=== PATIENT | male | born 1950 | race Caucasian/White ===

== ENCOUNTER 2020-06-06 14:23 | Outpatient (REF) | payer SELFPAY ==
[2020-06-09 12:55] LABS: SARS-CoV-2 RNA Not Detected (NotDetected); SARS-CoV-2 RNA Source Nasal/Nares
== END 2020-06-06 14:43 ==
LOC: NCHCN 14:23
PROVIDERS: PCP Nurse Practitioner Family; Visit Provider Nurse Practitioner Family
DX: Z20.828 Contact with and (suspected) exposure to other viral communicable diseases (principal)
CPT/HCPCS: U0003

== ENCOUNTER 2020-07-06 14:32 | Outpatient (REF) | payer OTHER, SELFPAY ==
[2020-07-09 09:51] LABS: COVID-19 RT-PCR Result Positive (Negative)
== END 2020-07-06 14:52 ==
LOC: NCHCN 14:32
PROVIDERS: PCP Nurse Practitioner Family; Visit Provider Nurse Practitioner Family
DX: J06.9 Acute upper respiratory infection, unspecified (principal)
CPT/HCPCS: U0003

== ENCOUNTER 2021-12-11 20:36 | Outpatient (REF) | payer OTHER, SELFPAY ==
[2021-12-11 21:50] LABS: Anion Gap 8.7 mmol/L (3-11); BUN 24 mg/dL (7-18); CO2 28.3 mmol/L (21.0-32.0); CREATININE 1.3 mg/dL (0.70-1.30); Calcium 8.1 mg/dL (8.5-10.1); Chloride 104 mmol/L (98-107); Estimated GFR 54.11 (mL/min/1.73m2); Glucose 97 mg/dL (74-106); Potassium 3.9 mmol/L (3.5-5.1); Sodium 141 mmol/L (136-145)
== END 2021-12-11 20:37 | disposition home or self-care (01) ==
LOC: NCHCN 20:36
PROVIDERS: PCP Nurse Practitioner Family; Visit Provider Nurse Practitioner Family
DX: U07.1 COVID-19 (principal)
CPT/HCPCS: 80048

== ENCOUNTER 2022-12-27 12:41 | Outpatient (CLI) | payer OTHER, SELFPAY ==
--- NOTE | 2022-12-27 06:00 | DI.RAD_ITS ---
Exam(s) XR PAIN CLINIC LUMBAR SP 2V EXAM: XR PAIN CLINIC LUMBAR SP 2V CLINICAL HISTORY: Dx: Lumbar Radiculopathy TECHNIQUE: 2D and realtime digital imaging was performed. Radiologist not present. CONTRAST MATERIAL: None. COMPARISON: No exams were available for comparison FINDINGS: Fluoroscopy was provided for pain management therapy. Please refer to procedure report or details. Radiation Exposure Index: Ka,r=7.7 mGy IMPRESSION: As above. RADIATION DOSE DELIVERED:
[2022-12-27 12:54] VITALS: BP 133/74; PULSE 59; RESP 16; TEMP 37; O2SAT 96
[2022-12-27 13:31] VITALS: BP 163/71; PULSE 65; RESP 21; O2SAT 99
--- NOTE | 2022-12-27 13:40 | PDOC.PAIN ---
Date of service: 12/27/22 Time of Service: 13:40 Pain Managment Procedure Note Procedure Note Procedure Note: Lumbar Epidural Steroid Injection Procedure Note COMMENTS: He was sent for this directly from his surgeon. I did review his MRI and his symptoms (low back pain radiating down the right leg (lateral thigh and calf). He has radiculopathy which correlates with his MRI findings. Dx: Lumbosacral radiculopathy Pre-procedure pain VAS was 6/10. Michael Horton has been referred to the [facility] for lumbar epidural steroid injection. The patient was greeted by the nurse who verified patients name and . Patient was then taken to the fluoroscopy suite. The patient was interviewed and the medial record reviewed. There were no medical, pharmacologic, radiographic, or other structural contraindications to attempting fluoroscopically guided lumbar epidural steroid injection. Risks and expected side effects as well as potential benefits of the procedure were reviewed and voiced concerns expressed. The patient consent form was signed and witnessed. Standard patient time-out procedure was performed. The patient was placed in the prone position on the fluoroscopy table and automated blood pressure cuff and pulse oximeter applied. The skin entry point for entering/approaching the epidural space at L5-S1 and marked. Following thorough chlorhexadine preparation of the skin and draping and 1% lidocaine infiltration of the skin entry point and subcutaneous tissues, a 18 gauge Touhy needle was placed under fluoroscopic guidance and with loss of resistance technique into the epidural space. Needle tip placement and depth were aided and confirmed by fluoroscopy. There was no paresthesia or return of blood or CSF through the needle. 1 cc's of Omnipaque 240 was injected with clear epidural spread confirmed with fluoroscopy. 80mg depomedrol was injected. I then injected 2 cc of 1% Lidocaine. There was not any unusual discomfort expressed by Michael Horton. Patient's vital signs were stable throughout the procedure and were as recorded in nursing records. Follow up plans and appointments were discussed with patient. Post procedure instruction was given as documented in nursing records and having met discharge criteria and was discharged from the [facility]. COMMENTS: If this procedure is helpful, it can be completed up to 4 times per 12 months. Post-procedure pain VAS was 2/10. Darnell Thurman DO, MPH [facility]-Pain Management [facility]
[2022-12-27] MEDS: Omnipaque 240 MG/ML 50 ML BTL IJ (13:46)
[2022-12-27] MEDS: Normal Saline 20 ML VIAL (13:46)
[2022-12-27] MEDS: methylPREDNISolone ACETATE 80 MG/ML VIAL IJ (13:46)
== END 2022-12-27 12:42 | disposition home or self-care (01) ==
PROVIDERS: PCP Nurse Practitioner Family; Visit Provider Preventive Medicine Occupational Medicine
DX: M54.17 Radiculopathy, lumbosacral region (principal)
CPT/HCPCS: 62323; 72100; J1040; Q9967

== ENCOUNTER → 2023-09-09 01:38 | Outpatient (CLI) | payer OTHER, SELFPAY ==
--- NOTE | 2023-09-09 07:15 | DI.RAD_ITS ---
Exam(s) XR FOOT RT COMPLETE EXAM: XR FOOT RT COMPLETE CLINICAL HISTORY: Right foot pain,pronation rt root, m21.6x1,m79.671,[id number],gait impair. TECHNIQUE: 2D digital imaging was performed of the right foot. Three images were obtained. AP, obl ique and lateral views were obtained. COMPARISON: No previous for comparison. FINDINGS: BONES: No acute fracture is present. No bony destructive lesion is seen. JOINTS: No dislocation present. The joint spaces are well maintained. SOFT TISSUE: Normal. IMPRESSION: No acute abnormality. DATA REPOSITORY: RADIATION DOSE DELIVERED:
== END ==
PROVIDERS: PCP Nurse Practitioner Family; Visit Provider Podiatrist
DX: M79.671 Pain in right foot (principal); M21.6X1 Other acquired deformities of right foot
CPT/HCPCS: 73630